=== PATIENT | male | born 1945 | race Caucasian/White ===

== ENCOUNTER 2019-07-19 11:13 | Observation (INO) ==
[2019-07-19] MEDS ORDERED: Isovue-370 500 ML BOTTLE IVP ONE (11:31)
[2019-07-19 11:55] LABS: Basophils # 0.1 K/mcL (0.0-0.2); Basophils % 0.4 %; Eosinophils # 0.3 K/mcL (0.0-0.6); Eosinophils % 2.4 %; Hematocrit 47.7 % (37.5-50.1); Hemoglobin 15.8 g/dL (12.9-16.9); Immature Granulocytes % 0.4 % (0-4); Lymphocytes # 3.2 K/mcL (0.6-4.6); Lymphocytes % 22.9 %; Mean Corpuscular HGB Conc 33.1 g/dL (31.6-35.5); Mean Corpuscular Hemoglobin 31.3 pg (28.0-33.3); Mean Corpuscular Volume 94.6 fL (83.0-100.0); Mean Platelet Volume 10.5 fL (9.4-12.4); Monocytes # 1.2 K/mcL (0.0-1.3); Monocytes % 8.3 %; Platelet Count 231 K/mcL (140-400); Red Blood Count 5.04 M/mcL (4.19-5.50); Segmented Neutrophils % 65.6 %; White Blood Count 14.1 K/mcL (4.3-11.1)
[2019-07-19 11:57] LABS: Bilirubin,Urine Negative (Negative); Blood,Urine Trace-intact (Negative); Clarity,Urine Clear (Clear); Color,Urine Yellow (Yellow); Glucose,Urine (UA) Normal (Normal); Ketones,Urine Negative (Negative); Leukocyte Esterase,Urine Negative (Negative); Nitrite,Urine Negative (Negative); PH,Urine 5.5 pH Units (5.0-8.0); Protein,Urine Negative (Neg-Trace); Specific Gravity,Urine >= 1.030 (1.010-1.025); Urobilinogen,Urine Normal (Normal)
[2019-07-19 11:59] LABS: Neutrophils # 9.3 K/mcL (1.6-8.9)
[2019-07-19 12:02] LABS: Bacteria,Urine Few per hpf (None-Few); WBC,Urine 0-3 per hpf (0-3)
[2019-07-19 12:03] LABS: RBC,Urine 0-3 per hpf (0-3); Squamous Epithelial Cell,Urine Few per lpf (None-Few)
[2019-07-19 12:08] LABS: Alanine Aminotransferase 14 Units/L (7-52); Albumin 4.6 g/dL (3.5-5.7); Albumin/Globulin Ratio 1.4 (1.1-2.2); Alkaline Phosphatase 71 Units/L (34-104); Aspartate Amino Transferase 17 Units/L (13-39); BUN/Creatinine Ratio 20 (6-26); Bilirubin,Total 0.6 mg/dL (0.3-1.0); Blood Urea Nitrogen 24 mg/dL (8-23); Calcium 10.1 mg/dL (8.6-10.3); Carbon Dioxide 27 mEq/L (23-29); Chloride 104 mEq/L (98-107); Globulin 3.3 g/dL (2.4-3.5); Glucose 90 mg/dL (70-105); Lipase 14 Units/L (11-82); Osmolality,Calculated 292 (280-300); Potassium 4.1 mEq/L (3.5-5.1); Sodium 139 mEq/L (136-145); Total Protein 7.9 g/dL (6.4-8.9); eGFR For African Americans > 60 (> 60); eGFR For Non-African Americans 58 (> 60)
[2019-07-19] MEDS ORDERED: Ondansetron 4 MG/2 ML VIAL IVP ONE (13:24)
[2019-07-19] MEDS ORDERED: Morphine Sulfate 2 MG/ML SYRINGE IVP ONE (13:24)
[2019-07-19] MEDS ORDERED: MetroNIDAZOLE 500 MG/100 ML 500 MG/100 ML BAG IVPB ONE (13:24)
[2019-07-19] MEDS ORDERED: Ondansetron 4 MG/2 ML VIAL IVP PRN (15:37)
[2019-07-19] MEDS ORDERED: Ondansetron ODT 4 MG TAB.RAPDIS SL PRN (15:37)
[2019-07-19] MEDS ORDERED: Bisacodyl 10 MG RECTAL SUPPOSITORY RC SCH (15:45)
[2019-07-19] MEDS: 0.9 % Sodium Chloride 1,000 ML IVC SCH (17:40)
[2019-07-19] MEDS: MetroNIDAZOLE 500 MG/100 ML 500 MG/100 ML BAG IVPB SCH ×2 (17:41→23:53)
[2019-07-19] MEDS: Lactulose Oral Soln 20 GM/30 ML UDC PO SCH ×2 (18:46→20:33)
[2019-07-19] MEDS: polyethylene glycoL 3350 17 GM POWD.PACK PO SCH ×2 (18:48→19:20)
[2019-07-19] MEDS: Sennosides 8.6 MG TABLET PO SCH (20:37)
[2019-07-20] MEDS: Lactulose Oral Soln 20 GM/30 ML UDC PO SCH ×2 (02:44→07:32)
[2019-07-20] MEDS: 0.9 % Sodium Chloride 1,000 ML IVC SCH ×3 (02:47→15:12)
[2019-07-20] MEDS ORDERED: *HR* Enoxaparin 40 MG/0.4 ML SYRINGE SQ SCH (06:00)
[2019-07-20] MEDS: MetroNIDAZOLE 500 MG/100 ML 500 MG/100 ML BAG IVPB SCH ×2 (07:29→15:12)
[2019-07-20] MEDS: Sennosides 8.6 MG TABLET PO SCH (07:30)
[2019-07-20] MEDS: polyethylene glycoL 3350 17 GM POWD.PACK PO SCH ×2 (07:31→07:42)
[2019-07-20] MEDS ORDERED: Cholecalciferol (D-3) 1,000 UNIT (25MCG) TABLET PO SCH (09:00)
[2019-07-20] MEDS ORDERED: amLODIPine 5 MG TABLET PO SCH (09:00)
[2019-07-20] MEDS ORDERED: Aspirin 81 MG TAB.CHEW PO SCH (09:00)
[2019-07-20] MEDS ORDERED: ZETIA 10 MG PO SCH (09:00)
[2019-07-20] MEDS ORDERED: Ondansetron 4 MG/2 ML VIAL IVP PRN (10:37)
[2019-07-20] MEDS ORDERED: Ketorolac 30 MG/ML VIAL IVP ONE (10:37)
[2019-07-20] MEDS ORDERED: Isovue-370 500 ML BOTTLE IVP ONE (12:00)
[2019-07-20 15:56] VITALS: BP 128/63
== END 2019-07-20 16:00 | disposition short-term general hospital (02) ==
LOC: INPGRE 11:13 → EMEROOGRE 11:13 → INPGRE 14:48
PROVIDERS: ADMIT Family Medicine; ATTEND Family Medicine

== ENCOUNTER 2021-05-27 12:15 | Inpatient (IN) ==
[2021-05-27] MEDS ORDERED: Nitroglycerin 0.4 MG TAB.SUBL SL PRN (20:06)
[2021-05-27] MEDS ORDERED: Benzonatate 100 MG CAPSULE PO PRN (20:06)
[2021-05-27] MEDS ORDERED: Acetaminophen 325 MG TABLET PO PRN (20:38)
[2021-05-27 20:41] LABS: Eosinophils # 0.1 K/mcL (0.0-0.6); Hemoglobin 7.4 g/dL (12.9-16.9); Immature Granulocytes % 0.3 % (0-4); Lymphocytes # 0.7 K/mcL (0.6-4.6); Lymphocytes % 10.2 %; Mean Corpuscular HGB Conc 30.8 g/dL (31.6-35.5); Mean Corpuscular Hemoglobin 31.1 pg (28.0-33.3); Mean Corpuscular Volume 100.8 fL (83.0-100.0); Mean Platelet Volume 11.4 fL (9.4-12.4); Monocytes # 0.3 K/mcL (0.0-1.3); Monocytes % 4.6 %; Neutrophils # 5.8 K/mcL (1.6-8.9); Platelet Count 104 K/mcL (140-400); Red Blood Count 2.38 M/mcL (4.19-5.50); Red Cell Distribution Width 19.5 % (11.5-14.5); Segmented Neutrophils % 82.9 %
[2021-05-27 20:55] LABS: Alanine Aminotransferase 6 Units/L (7-52); Albumin 2.5 g/dL (3.5-5.7); Alkaline Phosphatase 50 Units/L (34-104); Aspartate Amino Transferase 37 Units/L (13-39); BUN/Creatinine Ratio 31 (6-26); Bilirubin,Direct 0.2 mg/dL (0.0-0.2); Bilirubin,Indirect 0.5 mg/dL (0.0-1.0); Bilirubin,Total 0.7 mg/dL (0.3-1.0); Blood Urea Nitrogen 34 mg/dL (8-23); Calcium 7.9 mg/dL (8.6-10.3); Carbon Dioxide 29 mEq/L (23-29); Chloride 103 mEq/L (98-107); Globulin 2.5 g/dL (2.4-3.5); Glucose 153 mg/dL (70-105); Osmolality,Calculated 299 (280-300); Sodium 139 mEq/L (136-145); eGFR For African Americans > 60 (> 60); eGFR For Non-African Americans > 60 (> 60)
[2021-05-27 21:03] LABS: Troponin I 0.24 ng/mL (< 0.04)
[2021-05-27] MEDS ORDERED: Isovue-370 500 ML BOTTLE IVP ONE (21:45)
[2021-05-27] MEDS: Budesonide/Formoterol 160/4.5 1 PUFF INH IH SCH (21:56)
[2021-05-27] MEDS ORDERED: Remdesivir 200 MG in 0.9 % Sodium Chloride 100 ML IVPB ONE (22:00)
[2021-05-27] MEDS: Apixaban 5 MG TABLET PO SCH (22:18)
[2021-05-28] MEDS: CeFAZolin 2,000 MG/120 ML BAG IVPB SCH ×4 (00:48→23:46)
[2021-05-28 05:37] LABS: Hematocrit 21.9 % (37.5-50.1); Hemoglobin 6.7 g/dL (12.9-16.9); Immature Granulocytes % 0.3 % (0-4); Lymphocytes # 0.4 K/mcL (0.6-4.6); Lymphocytes % 6.8 %; Mean Corpuscular HGB Conc 30.6 g/dL (31.6-35.5); Mean Corpuscular Hemoglobin 30.6 pg (28.0-33.3); Mean Platelet Volume 11.4 fL (9.4-12.4); Monocytes # 0.2 K/mcL (0.0-1.3); Monocytes % 2.6 %; Neutrophils # 5.6 K/mcL (1.6-8.9); Red Blood Count 2.19 M/mcL (4.19-5.50); Red Cell Distribution Width 19.2 % (11.5-14.5); Segmented Neutrophils % 90.3 %; White Blood Count 6.2 K/mcL (4.3-11.1)
[2021-05-28 05:41] LABS: Platelet Count 97 K/mcL (140-400)
[2021-05-28 05:51] LABS: Albumin 2.3 g/dL (3.5-5.7); Bilirubin,Direct 0.2 mg/dL (0.0-0.2); Bilirubin,Indirect 0.4 mg/dL (0.0-1.0); Bilirubin,Total 0.6 mg/dL (0.3-1.0); Globulin 2.3 g/dL (2.4-3.5); Total Protein 4.6 g/dL (6.4-8.9)
[2021-05-28 05:52] LABS: BUN/Creatinine Ratio 36 (6-26); Blood Urea Nitrogen 36 mg/dL (8-23); Calcium 7.4 mg/dL (8.6-10.3); Carbon Dioxide 28 mEq/L (23-29); Chloride 102 mEq/L (98-107); Glucose 208 mg/dL (70-105); Osmolality,Calculated 300 (280-300); Potassium 3.6 mEq/L (3.5-5.1); Sodium 138 mEq/L (136-145); eGFR For African Americans > 60 (> 60); eGFR For Non-African Americans > 60 (> 60)
[2021-05-28] MEDS: Apixaban 5 MG TABLET PO SCH ×2 (07:41→22:19)
[2021-05-28] MEDS: Aspirin 81 MG TAB.CHEW PO SCH (08:32)
[2021-05-28 10:04] LABS: Hepatitis B Surface Antigen Nonreactive (Nonreactive)
[2021-05-28 10:34] LABS: Hepatitis B Core IgM Nonreactive (Nonreactive)
[2021-05-28 10:35] LABS: Hepatitis A Antibody IgM Nonreactive (Nonreactive)
[2021-05-28] MEDS: Budesonide/Formoterol 160/4.5 1 PUFF INH IH SCH ×2 (10:47→21:55)
[2021-05-28 11:37] LABS: Ferritin 474 ng/mL (20-250)
[2021-05-28 11:55] LABS: Hepatitis C Virus Antibody Nonreactive (Nonreactive)
[2021-05-28] MEDS ORDERED: 0.9 % Sodium Chloride 250 ML IVC SCH (12:30)
[2021-05-28] MEDS: *HR* OxyCODONE Immed Rel 5 MG TABLET PO PRN ×2 (13:24→22:19)
[2021-05-28] MEDS: Remdesivir 100 MG in 0.9 % Sodium Chloride 100 ML IVPB SCH (22:20)
[2021-05-29 04:48] LABS: Basophils % 0.1 %; Eosinophils % 0.1 %; Hematocrit 26.1 % (37.5-50.1); Immature Granulocytes % 0.3 % (0-4); Lymphocytes # 1.2 K/mcL (0.6-4.6); Lymphocytes % 12.8 %; Mean Corpuscular HGB Conc 31.4 g/dL (31.6-35.5); Mean Corpuscular Hemoglobin 30.9 pg (28.0-33.3); Mean Corpuscular Volume 98.5 fL (83.0-100.0); Mean Platelet Volume 11.9 fL (9.4-12.4); Monocytes # 0.5 K/mcL (0.0-1.3); Monocytes % 5.4 %; Neutrophils # 7.3 K/mcL (1.6-8.9); Platelet Count 110 K/mcL (140-400); Red Blood Count 2.65 M/mcL (4.19-5.50); Red Cell Distribution Width 18.5 % (11.5-14.5); Segmented Neutrophils % 81.3 %
[2021-05-29 04:53] LABS: Hemoglobin 8.2 g/dL (12.9-16.9)
[2021-05-29 05:21] LABS: BUN/Creatinine Ratio 49 (6-26); Blood Urea Nitrogen 50 mg/dL (8-23); Calcium 7.7 mg/dL (8.6-10.3); Carbon Dioxide 26 mEq/L (23-29); Chloride 104 mEq/L (98-107); Glucose 165 mg/dL (70-105); Osmolality,Calculated 309 (280-300); Potassium 3.6 mEq/L (3.5-5.1); Sodium 141 mEq/L (136-145); Troponin I 0.15 ng/mL (< 0.04); eGFR For African Americans > 60 (> 60); eGFR For Non-African Americans > 60 (> 60)
[2021-05-29 05:25] LABS: Albumin 2.5 g/dL (3.5-5.7); Bilirubin,Direct 0.2 mg/dL (0.0-0.2); Bilirubin,Indirect 0.5 mg/dL (0.0-1.0); Bilirubin,Total 0.7 mg/dL (0.3-1.0); Globulin 2.5 g/dL (2.4-3.5)
[2021-05-29] MEDS: Apixaban 5 MG TABLET PO SCH ×2 (10:45→21:03)
[2021-05-29] MEDS: Aspirin 81 MG TAB.CHEW PO SCH (10:45)
[2021-05-29] MEDS: CeFAZolin 2,000 MG/120 ML BAG IVPB SCH ×2 (10:47→20:13)
[2021-05-29] MEDS: Budesonide/Formoterol 160/4.5 1 PUFF INH IH SCH ×2 (12:00→20:14)
[2021-05-29] MEDS ORDERED: *HR* LORazepam Oral Conc 2 MG/ML SL STA (19:14)
[2021-05-29] MEDS ORDERED: *HR* LORazepam 2 MG/ML VIAL IVP STA (20:20)
[2021-05-29] MEDS: Remdesivir 100 MG in 0.9 % Sodium Chloride 100 ML IVPB SCH (22:08)
[2021-05-30] MEDS: CeFAZolin 2,000 MG/120 ML BAG IVPB SCH ×3 (00:19→16:26)
[2021-05-30] MEDS ORDERED: 0.9 % Sodium Chloride 500 ML IV ONE (00:31)
[2021-05-30] MEDS ORDERED: *HR* LORazepam 2 MG/ML VIAL IVP PRN (00:33)
[2021-05-30] MEDS: Budesonide/Formoterol 160/4.5 1 PUFF INH IH SCH ×2 (07:40→07:47)
[2021-05-30] MEDS: Apixaban 5 MG TABLET PO SCH ×2 (08:39→21:15)
[2021-05-30] MEDS: Aspirin 81 MG TAB.CHEW PO SCH (08:39)
[2021-05-30] MEDS ORDERED: Morphine Sulfate Oral CONC 10 MG/0.5 ML ORAL.SYG SL PRN (10:07)
[2021-05-30] MEDS: Morphine Sulfate Oral CONC 10 MG/0.5 ML ORAL.SYG SL PRN (17:46)
[2021-05-30] MEDS: Remdesivir 100 MG in 0.9 % Sodium Chloride 100 ML IVPB SCH (22:49)
[2021-05-30] MEDS: *HR* LORazepam 2 MG/ML VIAL IVP PRN (23:04)
[2021-05-31] MEDS: Morphine Sulfate Oral CONC 10 MG/0.5 ML ORAL.SYG SL PRN ×5 (00:28→23:35)
[2021-05-31] MEDS: CeFAZolin 2,000 MG/120 ML BAG IVPB SCH ×3 (00:30→16:45)
[2021-05-31] MEDS: *HR* LORazepam 2 MG/ML VIAL IVP PRN ×4 (01:51→20:18)
[2021-05-31] MEDS ORDERED: Scopolamine Patch 1.5 MG PATCH.TD72 TD SCH (02:45)
[2021-05-31] MEDS: Aspirin 81 MG TAB.CHEW PO SCH (09:02)
[2021-05-31] MEDS: Apixaban 5 MG TABLET PO SCH ×2 (09:03→22:50)
[2021-05-31 09:11] LABS: Alanine Aminotransferase < 3 Units/L (7-52); Albumin 2.3 g/dL (3.5-5.7); Alkaline Phosphatase 49 Units/L (34-104); Aspartate Amino Transferase 25 Units/L (13-39); Bilirubin,Direct 0.1 mg/dL (0.0-0.2); Bilirubin,Indirect 0.7 mg/dL (0.0-1.0); Bilirubin,Total 0.8 mg/dL (0.3-1.0); Globulin 2.4 g/dL (2.4-3.5); Total Protein 4.7 g/dL (6.4-8.9)
[2021-05-31] MEDS: Remdesivir 100 MG in 0.9 % Sodium Chloride 100 ML IVPB SCH (22:50)
[2021-06-01] MEDS: CeFAZolin 2,000 MG/120 ML BAG IVPB SCH ×4 (01:26→23:33)
[2021-06-01] MEDS: *HR* LORazepam 2 MG/ML VIAL IVP PRN ×6 (02:52→23:31)
[2021-06-01] MEDS: Morphine Sulfate Oral CONC 10 MG/0.5 ML ORAL.SYG SL PRN ×7 (05:41→23:32)
[2021-06-01 06:22] LABS: Alanine Aminotransferase < 3 Units/L (7-52); Albumin 2.3 g/dL (3.5-5.7); Alkaline Phosphatase 52 Units/L (34-104); Aspartate Amino Transferase 28 Units/L (13-39); Bilirubin,Direct 0.2 mg/dL (0.0-0.2); Bilirubin,Indirect 0.4 mg/dL (0.0-1.0); Bilirubin,Total 0.6 mg/dL (0.3-1.0); Globulin 2.4 g/dL (2.4-3.5); Total Protein 4.7 g/dL (6.4-8.9)
[2021-06-01] MEDS: Aspirin 81 MG TAB.CHEW PO SCH (07:35)
[2021-06-01] MEDS: Apixaban 5 MG TABLET PO SCH ×2 (07:35→21:21)
[2021-06-01] MEDS: Budesonide/Formoterol 160/4.5 1 PUFF INH IH SCH ×2 (09:00→18:39)
[2021-06-01 17:59] LABS: Procalcitonin 1.24 ng/mL (0.00-0.15)
[2021-06-01 20:27] VITALS: TEMP 96.6; O2SAT 88
[2021-06-02] MEDS: Morphine Sulfate Oral CONC 10 MG/0.5 ML ORAL.SYG SL PRN ×6 (00:27→05:40)
[2021-06-02] MEDS: *HR* LORazepam 2 MG/ML VIAL IVP PRN ×3 (01:35→05:39)
[2021-06-02 04:30] VITALS: RESP 36
[2021-06-02 04:42] VITALS: BP 88/51; PULSE 80
[2021-06-02] MEDS: Budesonide/Formoterol 160/4.5 1 PUFF INH IH SCH (09:13)
== END 2021-06-02 11:15 | disposition expired | DRG 177 ==
LOC: INPGRE 19:58
PROVIDERS: ADMIT Family Medicine; ATTEND Family Medicine